=== PATIENT | male | born 1980 | race Two or more races ===

== ENCOUNTER 2023-10-30 11:46 | Emergency (ER) | payer OTHER ==
[~2023-10-30] VITALS: Ht 180.3 cm; Wt 81.6 kg
[2023-10-30] MEDS ORDERED: PEPCID AC20 MG PO (12:24)
[2023-10-30] MEDS ORDERED: FAMOTIDINE/PF 20 MG/2 ML VIAL IV PUSH STA (13:01)
[2023-10-30] MEDS ORDERED: ONDANSETRON HCL 2 MG/ML VIAL IV STA (13:02)
[2023-10-30] MEDS ORDERED: FAMOtidine 200mg/20ml VIAL ONE (13:16)
[2023-10-30] MEDS ORDERED: ONDANSETRON HCL 2 MG/ML VIAL ONE (13:16)
[2023-10-30 14:57] LABS: PH,URINE 5.5 (5.0-8.0); URINE APPEARANCE Clear; URINE BILIRRUBIN Negative (NEGATIVE); URINE BLOOD Negative; URINE COLOR Dark Yellow; URINE GLUCOSE Negative (NEGATIVE); URINE LEUKOCYTE Negative; URINE NITRATE Negative; URINE PROTEIN Trace (NEGATIVE)
[2023-10-30 14:58] LABS: HEMOGLOBIN 14.9 g/dL (13-16.00); MEAN CELL VOLUME 88.3 fL (80.0-100.00); MEAN CORPUSCULAR HEMOGLOBIN 30.7 pg (27.00-32.0); MEAN CORPUSCULAR HGB CONC 34.8 g/dl (32.0-36.0); PLATELET COUNT 219 K/uL (150-450); RED BLOOD COUNT 4.87 M/uL (4.00-6.00); RED CELL DISTRIBUTION WIDTH 13.9 % (11.5-14.5)
[2023-10-30 15:04] LABS: URINE BACTERIA 21.4 uL (0.0-1933); URINE EPITHELIAL CELLS 45.4 uL (0.0-38.8); URINE RBC 11.6 uL (0.0-20.8); URINE WBC 7.1 uL (0.0-23.2)
[2023-10-30 15:28] LABS: CALCIUM 9.2 mg/dL (8.5-10.1); CREATININE SERUM 1.67 mg/dL (0.70-1.30); GFR 44.71; POTASSIUM 4.73 mEq/L (3.5-5.1)
[2023-10-31] MEDS ORDERED: RINGERS SOLUTION,LACTATED 1,000 ML IV SCH (10:00)
== END 2023-10-30 16:11 | disposition home or self-care (01) ==
LOC: ER 11:48
PROVIDERS: Emergency Medicine
DX: K21.9 Gastro-esophageal reflux disease without esophagitis (principal); R10.9 Unspecified abdominal pain; Z20.822 Contact with and (suspected) exposure to COVID-19